=== PATIENT | male | born 1990 | race African-American/Black ===

== ENCOUNTER 2016-12-24 14:41 | Emergency (ER) | payer MEDICAID ==
[~2016-12-24] VITALS: Ht 182.9 cm; Wt 93.0 kg
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
[2016-12-24] MEDS ORDERED: MORPHINE SULFATE INJ 4 MG/ML DISP.SYRIN ONE (14:57)
[2016-12-24] MEDS ORDERED: MORPHINE SULFATE INJ 4 MG/ML DISP.SYRIN IM ONE (15:00)
[2016-12-24] MEDS ORDERED: TDAP [DIPH/PERTUSSIS/TET] 0.5 ML VIAL IM ONE ×2 (15:00→15:32)
[2016-12-24] MEDS ORDERED: IBUPROFEN 600 MG TABLET PO ONE ×2 (15:01→15:30)
[2016-12-24] MEDS ORDERED: LIDOCAINE 0.5% HCL 50 ML VIAL ONE (15:27)
[2016-12-24] MEDS ORDERED: LIDOCAINE 0.5%-EPI 1:200,000 50 ML VIAL ONE (15:28)
[2016-12-24] MEDS ORDERED: LIDOCAINE HCL/PF 1% 30 ML SDV ONE (15:29)
[2016-12-24] MEDS ORDERED: CEPHALEXIN MONOHYDRATE 500 MG CAPSULE PO ONE ×2 (15:30→15:31)
[2016-12-24] MEDS ORDERED: LIDOCAINE HCL/PF 1% 30 ML VIAL TP ONE (15:30)
--- NOTE | 2016-12-24 15:34 | NUR ---
PT AT BS FOR WOUND PROCEDURE.
[2016-12-24] MEDS ORDERED: HYDROCODONE/APAP 5/325MG 1 EACH TABLET ONE (16:49)
--- NOTE | 2016-12-24 16:55 | NUR ---
ANUJ LE AT FOR WOUND CARE.
[2016-12-24] MEDS ORDERED: HYDROCODONE/APAP 5/325MG 1 EACH TABLET PO ONE (17:00)
--- NOTE | 2016-12-24 17:00 | NUR ---
Patient discharged to home in stable condition. Written and verbal after care instructions given. Patient verbalizes understanding of instruction.
[2016-12-24 17:03] VITALS: BP 128/84
== END 2016-12-24 17:04 | disposition home or self-care (01) ==
LOC: ER 14:44
DX: S61.214A Laceration without foreign body of right ring finger without damage to nail, initial encounter (principal); S61.222A Laceration with foreign body of right middle finger without damage to nail, initial encounter; Z23 Encounter for immunization; W31.2XXA Contact with powered woodworking and forming machines, initial encounter; Y93.89 Activity, other specified; Y92.69 Other specified industrial and construction area as the place of occurrence of the external cause; Y99.0 Civilian activity done for income or pay
CPT/HCPCS: 73130-TC; A4217; A4606; A6402; Z7610

== ENCOUNTER 2016-12-26 09:57 | Emergency (ER) | payer MEDICAID ==
[~2016-12-26] VITALS: Ht 182.9 cm; Wt 93.0 kg
[2016-12-26 10:01] VITALS: BP 145/84
== END 2016-12-26 10:40 | disposition home or self-care (01) ==
LOC: ER 09:59
DX: S61.211D Laceration without foreign body of left index finger without damage to nail, subsequent encounter (principal); S61.213D Laceration without foreign body of left middle finger without damage to nail, subsequent encounter; S61.215D Laceration without foreign body of left ring finger without damage to nail, subsequent encounter; X58.XXXD Exposure to other specified factors, subsequent encounter; Y93.89 Activity, other specified; Y92.89 Other specified places as the place of occurrence of the external cause; Y99.9 Unspecified external cause status
CPT/HCPCS: 99281; A4606; A6402; Z7610; Z7502

== ENCOUNTER 2017-01-02 09:01 | Emergency (ER) | payer MEDICAID ==
[~2017-01-02] VITALS: Ht 182.9 cm; Wt 93.0 kg
[2017-01-02 09:04] VITALS: BP 128/79
== END 2017-01-02 09:55 | disposition home or self-care (01) ==
LOC: ER 09:03
DX: S61.411D Laceration without foreign body of right hand, subsequent encounter (principal)
CPT/HCPCS: A4606; Z7610